=== PATIENT | male | born 1975 | race Caucasian/White ===

== ENCOUNTER 2019-02-04 23:00 | Emergency (ER) | payer OTHER, MEDICAID, SELFPAY ==
[2019-02-04 23:08] VITALS: BP 150/96; PULSE 104; RESP 20; TEMP 36.6; O2SAT 96
--- NOTE | 2019-02-04 23:36 | ED.SKABFB ---
HPI - Skin/Abscess/Foreign Bdy General Chief complaint: Skin/Abscess/Foreign Body Stated complaint: cyst on scrotum/son stepped on it and ruptured Time Seen by Provider: 02/04/19 23:34 Source: patient Mode of arrival: Ambulatory Limitations: no limitations History of Present Illness HPI narrative: Patient is 43-year-old male who presents with bright testicular drainage. He says that he says sebaceous cyst there for a number of years. He has noticed more increased irritation over the last couple of days, tonight his 8-year-old son was jumping he felt a gush come out. He was able to squeeze some more pus out. It is tender to touch actually does not have testicular pain. He has no fever. Related Data Previous Rx's Medication Instructions Recorded lisinopril 20 1 tab PO QDAY #90 tab 06/23/18 mg-hydrochlorothiazide 12.5 mg tablet sulfamethoxazole-trimethoprim 1 tab PO BID 7 Days #14 tab 02/04/19 [Bactrim DS] Allergies Allergy/AdvReac Type Severity Reaction Status Date / Time Penicillins [PENICILLINS] Allergy Unknown CHILDHOOD Verified 06/23/18 11:53 Review of Systems Review of Systems Narrative: GENERAL: Denies chills,fever HEENT: Denies throat pain RESPIRATORY: Denies dyspnea, cough, wheezing CARDIOVASCULAR: Denies chest pain, palpitations GASTROINTESTINAL: Denies nausea, vomiting see HPI MUSCULOSKELETAL: Denies extremity pain, injury SKIN: No rash, no laceration, no pruritus NEUROLOGIC: Denies weakness, dizziness, headache, numbness 8 point review of systems is negative except for those stated above and HPI Patient History Surgical History (Updated 08/06/17 @ 06:05 by Conversion Provider) Status post tonsillectomy and adenoidectomy Family History (Updated 02/12/14 @ 00:00 by Conversion Provider) Father Age: 68 Hypertension Mother Stroke Hypoglycemia Social History marital status: household members: spouse and children (4) Smoking Status: Former smoker alcohol intake: current (ON OCCASION ) substance use type: does not use alcohol intake frequency: holidays/special occasions only Substance Use Type: marijuana Exam Initial Vital Signs Initial Vital Signs: Vital Signs Temperature 97.9 F 02/04/19 23:08 Pulse Rate 104 H 02/04/19 23:08 Respiratory Rate 20 02/04/19 23:08 Blood Pressure 150/96 H 02/04/19 23:08 Pulse Oximetry 96 02/04/19 23:08 GENERAL: Overweight well-appearing male CARDIOVASCULAR: peripheral pulses in tact, cap refill <2 sec RESPIRATORY: No respiratory distress, speaks in full sentences without difficulty : No testicular pain bilaterally. EXTREMITIES: Normal range of motion, no clubbing or edema. Neurovascularly intact NEUROLOGICAL: Cranial nerves II through XII grossly intact. Normal gait and speech. SKIN: Superficial right-sided testicular abscess about 1 cm x 1 cm gross pus draining from it. No surrounding induration or erythema Course Orders Ordered: ED Orders 02/04/19 23:59 Wound Culture and Gram Stain Stat Discontinued Medications Trimethoprim/Sulfamethoxazole (Bactrim Ds Prepack) 1 bottle [facility] [place] [facility] Stop: 02/04/19 23:48 Last Admin: 02/04/19 23:54 Dose: 1 bottle Documented by: LEANNA Vital Signs Vital signs: Vital Signs - 8 hr 02/04/19 23:08 Temperature 97.9 F Pulse Rate 104 H Respiratory Rate 20 Blood Pressure 150/96 H Pulse Oximetry 96 MDM - Skin/Abscess/Foreign Bdy MDM Narrative Medical decision making narrative: Patient does not appear to have significant scrotal involvement. He has an isolated abscess which is now draining. I have been able to get more drainage out wound culture is sent. No sign of Crystal's gangrene. Discharge Plan Departure Patient Disposition: Home Clinical Impression: Testicular abscess Discharge Date/Time: 02/04/19 23:57 Instructions: DI for Skin Abscess Activity Restrictions/Additional Instructions: *You have been diagnosed with right testicular abscess of the skin *What to do: Warm compresses, expect it to drain a little bit more. *Continue to take medications as directed Bactrim 1 tablet twice a day for 7 days *Follow up with your primary care provider in 2-3 days *Return to ER if you should have increasing redness, swelling, pain, testicular pain, fevers or any new, worsening or concerning symptoms Prescriptions: New sulfamethoxazole-trimethoprim [Bactrim DS] 800-160 mg tablet 1 tab PO BID 7 Days Qty: 14 RF: 0 No Action lisinopril-hydrochlorothiazide 20-12.5 mg tablet 1 tab PO QDAY Qty: 90 RF: 3 Referrals: Harjinder Saucedo MD [Primary Care Provider] -
[2019-02-04] MEDS: TRIMETH/SULFA 160/800 PREPACK 1 BOTTLE MISC (23:54)
== END 2019-02-04 23:57 | disposition home or self-care (01) ==
PROVIDERS: Emergency Provider Emergency Medicine; PCP Family Medicine
DX: N49.2 Inflammatory disorders of scrotum (principal)
CPT/HCPCS: 87070; 87075; 87077; 87185; 87186; 87205; 99282; 99283

== ENCOUNTER → 2021-02-13 07:20 | Outpatient (CLI) | payer OTHER, MEDICAID, SELFPAY ==
[2021-02-13 08:47] LABS: Add Manual Diff / Slide Review NO; Basophils Absolute Auto 100 /uL (0-100); Basophils Percent Auto 0.5 % (0-2); Eosinophils Absolute Auto 200 /uL (0-450); Eosinophils Percent Auto 2.1 % (2-4); Hematocrit 40.1 % (41-53); Hemoglobin 13.3 g/dL (13.5-17.5); Lymphocytes Absolute Auto 2400 /uL (1100-4500); Lymphocytes Percent Auto 24.9 % (25-40); Mean Corpuscular HGB Conc 33.2 % (30-36); Mean Corpuscular Volume 84.4 fL (80-100); Monocytes Absolute Auto 700 /uL (0-900); Monocytes Percent Auto 7.1 % (3-14); Neutrophils Absolute Auto 6300 /uL (1500-7000); Neutrophils Percent Auto 65.4 % (50-75); Platelet Count 267 X10^3/uL (150-400); Red Blood Cell Count 4.75 X10^6/uL (4.5-5.9); Red Cell Distribution Width 14.2 % (11.6-14.8); White Blood Cell Count 9.6 X10^3/uL (4.5-11.0)
[2021-02-13 09:23] LABS: Alanine Aminotransferase 26 IU/L (<50); Albumin 4.3 g/dL (3.5-5.0); Albumin Globulin Ratio 1.4 (1.0-2.8); Alkaline Phosphatase 73 U/L (38-126); Aspartate Aminotransferase 22 IU/L (17-59); Bilirubin Total 0.4 mg/dL (0.2-1.3); Blood Urea Nitrogen 17 mg/dL (9-20); Calcium 9.4 mg/dL (8.4-10.2); Carbon Dioxide 29 mmol/L (22-32); Chloride 101 mmol/L (98-107); Cholesterol 208 mg/dL (140-199); Estimated Glomerular Filt Rate > 60.0 mL/min (>60); Globulin 3.1 g/dL (1.7-4.1); Glucose 122 mg/dL (70-100); HDL Cholesterol 34 mg/dL (40-60); HEMOLYSIS < 15 (0-50); LDL Cholesterol Calculated 151 mg/dL (<100); Sodium 140 mmol/L (137-145); Total Protein 7.4 g/dL (6.3-8.2); Triglycerides 115 mg/dL (35-150)
[2021-02-13 09:46] LABS: Thyroid Stimulating Hormone 1.43 uIU/mL (0.47-4.68)
[2021-02-13 09:57] LABS: Creatinine Urine Random 114.7 mg/dL
[2021-02-13 10:04] LABS: Microalbumi Creatinin Ratio Ur 14.8 ug/mg CR (<30); Microalbumin Urine Random 1.7 mg/dL (0-1.6)
== END ==
PROVIDERS: PCP Family Medicine; Referring Provider Physician Assistant; Visit Provider Physician Assistant
DX: E78.00 Pure hypercholesterolemia, unspecified (principal); I10 Essential (primary) hypertension
CPT/HCPCS: 36415; 80053; 80061; 82043; 82570; 84443; 85025

== ENCOUNTER → 2021-05-29 06:59 | Outpatient (CLI) | payer OTHER, MEDICAID, SELFPAY ==
[2021-05-29 08:06] LABS: Hemoglobin A1C% w Est Avg Glu 6.8 % (4.0-6.0)
[2021-05-29 08:16] LABS: Cholesterol 218 mg/dL (140-199); Glucose 141 mg/dL (70-100); HDL Cholesterol 37 mg/dL (40-60); LDL Cholesterol Calculated 154 mg/dL (<100); Triglycerides 136 mg/dL (35-150)
== END ==
PROVIDERS: PCP Family Medicine; Referring Provider Physician Assistant; Visit Provider Physician Assistant
DX: E66.01 Morbid (severe) obesity due to excess calories (principal); E78.00 Pure hypercholesterolemia, unspecified; R73.01 Impaired fasting glucose; Z68.42 Body mass index [BMI] 45.0-49.9, adult
CPT/HCPCS: 36415; 80061; 82947; 83036

== ENCOUNTER → 2022-02-22 09:35 | Outpatient (CLI) | payer OTHER, MEDICAID, SELFPAY ==
[2022-02-22 10:37] LABS: Hemoglobin A1C% w Est Avg Glu 6.5 % (4.0-6.0)
[2022-02-22 10:45] LABS: BUN Creatinine Ratio 28.1 (6-22); Blood Urea Nitrogen 16 mg/dL (9-20); Calcium 9.2 mg/dL (8.4-10.2); Carbon Dioxide 26 mmol/L (22-32); Chloride 101 mmol/L (98-107); Estimated Glomerular Filt Rate > 60 mL/min (>60); Glucose 122 mg/dL (70-100); HEMOLYSIS < 15 (0-50); Potassium 4.2 mmol/L (3.4-5.1); Sodium 136 mmol/L (137-145)
== END ==
PROVIDERS: PCP Family Medicine; Referring Provider Family Medicine; Visit Provider Family Medicine
DX: R73.01 Impaired fasting glucose (principal)
CPT/HCPCS: 36415; 80048; 83036

== ENCOUNTER → 2022-10-11 08:06 | Outpatient (CLI) | payer OTHER, SELFPAY ==
[2022-10-12 06:35] LABS: x Labcorp Estim. Avg Glu (eAG) 189 mg/dL (.); x Labcorp Hemoglobin A1c 8.2 % (4.8-5.6)
== END ==
PROVIDERS: PCP Family Medicine; Referring Provider Family Medicine; Visit Provider Family Medicine
DX: E11.9 Type 2 diabetes mellitus without complications (principal)
CPT/HCPCS: 36415; 83036

== ENCOUNTER → 2023-11-04 08:27 | Outpatient (CLI) | payer OTHER, SELFPAY ==
[2023-11-04 10:28] LABS: Hemoglobin A1C% w Est Avg Glu 8.6 % (4.0-6.0)
== END ==
PROVIDERS: PCP Family Medicine; Referring Provider Family Medicine; Visit Provider Family Medicine
DX: E11.9 Type 2 diabetes mellitus without complications (principal)
CPT/HCPCS: 36415; 83036

== ENCOUNTER → 2024-09-14 09:26 | Outpatient (CLI) | payer OTHER, SELFPAY ==
[2024-09-14 10:51] LABS: Add Manual Diff / Slide Review NO; Basophils Absolute Auto 100 /uL (0-100); Basophils Percent Auto 1.1 % (0-2); Eosinophils Absolute Auto 100 /uL (0-450); Eosinophils Percent Auto 1.4 % (2-4); Lymphocytes Absolute Auto 2600 /uL (1100-4500); Lymphocytes Percent Auto 29.1 % (25-40); Mean Corpuscular HGB Conc 34.3 % (30-36); Mean Corpuscular Hemoglobin 29.2 PG (26-34); Mean Corpuscular Volume 85.3 fL (80-100); Monocytes Absolute Auto 600 /uL (0-900); Monocytes Percent Auto 6.9 % (3-14); Neutrophils Absolute Auto 5600 /uL (1500-7000); Neutrophils Percent Auto 61.5 % (50-75); Platelet Count 234 X10^3/uL (150-400); Red Blood Cell Count 4.81 X10^6/uL (4.5-5.9); Red Cell Distribution Width 14.2 % (11.6-14.8)
[2024-09-14 11:01] LABS: Alanine Aminotransferase 44 IU/L (<50); Albumin 4.3 g/dL (3.5-5.0); Albumin Globulin Ratio 1.6 (1.0-2.8); Alkaline Phosphatase 120 U/L (38-126); Aspartate Aminotransferase 33 IU/L (17-59); BUN Creatinine Ratio 29.3 (6-22); Bilirubin Total 0.6 mg/dL (0.2-1.3); Blood Urea Nitrogen 17 mg/dL (9-20); Calcium 9.4 mg/dL (8.4-10.2); Carbon Dioxide 25 mmol/L (22-32); Chloride 97 mmol/L (98-107); Cholesterol 243 mg/dL (140-199); Estimated Glomerular Filt Rate > 60 mL/min (>60); Globulin 2.7 g/dL (1.7-4.1); Glucose 289 mg/dL (70-99); HDL Cholesterol 39 mg/dL (40-60); HEMOLYSIS 15 (0-50); LDL Cholesterol Calculated 138 mg/dL (<100); Potassium 4.6 mmol/L (3.4-5.1); Sodium 134 mmol/L (137-145); Triglycerides 332 mg/dL (35-150)
[2024-09-14 11:08] LABS: Hemoglobin A1C% w Est Avg Glu 9.6 % (4.0-6.0)
[2024-09-14 11:29] LABS: TSH w/ Reflex to FT4 1.29 uIU/mL (0.47-4.68)
[2024-09-14 11:46] LABS: Creatinine Urine Random 51.09 mg/dL
[2024-09-14 11:50] LABS: Microalbumin Urine Random 6.8 mg/dL (0-1.6)
== END ==
PROVIDERS: PCP Family Medicine; Referring Provider Family Medicine; Visit Provider Family Medicine
DX: E11.9 Type 2 diabetes mellitus without complications (principal); E66.01 Morbid (severe) obesity due to excess calories; I10 Essential (primary) hypertension; E78.00 Pure hypercholesterolemia, unspecified; Z68.42 Body mass index [BMI] 45.0-49.9, adult
CPT/HCPCS: 36415; 80053; 80061; 82043; 82570; 83036; 84443; 85025